=== PATIENT | female | born 2000 | race Caucasian/White ===

== ENCOUNTER 2023-11-28 09:10 | Emergency (ER) | payer MEDICAID ==
[~2023-11-28] VITALS: Ht 175.3 cm; Wt 113.6 kg
[2023-11-28 09:41] VITALS: BP 144/79; PULSE 86; O2SAT 98
[2023-11-28 12:22] VITALS: RESP 17; TEMP 98
== END 2023-11-28 12:29 | disposition home or self-care (01) ==
LOC: ER 09:10
DX: S93.401A Sprain of unspecified ligament of right ankle, initial encounter (principal); W01.0XXA Fall on same level from slipping, tripping and stumbling without subsequent striking against object, initial encounter; Y93.89 Activity, other specified; Y92.89 Other specified places as the place of occurrence of the external cause; Y99.8 Other external cause status
CPT/HCPCS: 73610; 99284; A6449